=== PATIENT | male | born 1980 | race Caucasian/White ===

== ENCOUNTER → 2019-01-22 | Emergency (ER) | payer SELFPAY, OTHER ==
[2019-01-22] MEDS: LORAZEPAM 2 MG INJ IM (09:10)
== END | disposition home or self-care (01) ==
LOC: E/R 08:24
DX: F15.10 Other stimulant abuse, uncomplicated (principal); F17.210 Nicotine dependence, cigarettes, uncomplicated
CPT/HCPCS: 96372; 99284-25